=== PATIENT | female | born 1985 | race Caucasian/White ===

== ENCOUNTER 2017-01-03 08:07 | Emergency (ER) | payer OTHER ==
[~2017-01-03] VITALS: Ht 157.5 cm; Wt 111.0 kg
[~2017-01-03 08:07] MED LIST: OXYC-302 PO
[2017-01-03 08:09] VITALS: BP 126/84
[2017-01-03] MEDS ORDERED: MORPHINE SULFATE 4 MG/ML, 1ML ONE (09:20)
[2017-01-03] MEDS ORDERED: MAALOX/HYOSCYAMINE/LIDOCAINE 45 ML BTL ONE (09:20)
[2017-01-03] MEDS ORDERED: FAMOTIDINE 20 MG/2 ML ONE (09:21)
[2017-01-03] MEDS ORDERED: ONDANSETRON 2MG/ML, 2ML ONE (09:21)
[2017-01-03 09:30] LABS: HEMATOCRIT 40.8 % (34.6-47.8); HEMOGLOBIN 13.6 g/dL (11.7-16.4); WHITE BLOOD COUNT 11.2 x10^3/uL (3.4-10)
[2017-01-03] MEDS ORDERED: ONDANSETRON 2MG/ML, 2ML IVPush ONE (09:30)
[2017-01-03] MEDS ORDERED: MAALOX/HYOSCYAMINE/LIDOCAINE 45 ML BTL PO ONE (09:30)
[2017-01-03] MEDS ORDERED: FAMOTIDINE 20 MG/2 ML IVP ONE (09:30)
[2017-01-03] MEDS ORDERED: MORPHINE SULFATE 4 MG/ML, 1ML IVPush PRN (09:30)
[2017-01-03] MEDS ORDERED: SODIUM CHLORIDE FLUSH 10ML SYR IVF ONE (09:30)
[2017-01-03] MEDS ORDERED: SODIUM CHLORIDE 0.9% 1,000ML IVBOLUS ONE (09:30)
[2017-01-03 09:41] LABS: ASPARTATE AMINO TRANSFERASE 13 U/L (15-37); BLOOD UREA NITROGEN 9 mg/dL (7-18)
== END 2017-01-03 11:10 | disposition home or self-care (01) ==
LOC: ED 08:54
DX: R10.13 Epigastric pain (principal); R11.10 Vomiting, unspecified; K27.3 Acute peptic ulcer, site unspecified, without hemorrhage or perforation; I10 Essential (primary) hypertension
CPT/HCPCS: 36415; 76700; 80053; 81003; 83690; 85025; 96361; 96374; 96375; 99285; J2405; J7030; S0028